=== PATIENT | female | born 1940 | race Caucasian/White ===

== ENCOUNTER → 2016-10-11 | Outpatient (CLI) | payer MEDICARE ==
[~2016-10-11] MED LIST: REGADENOSON 0.4 MG/5 ML DISP.SYRIN. IV ONE
--- NOTE | 2016-10-11 13:04 | RAD ---
APPROVED REPORT Test Type: Pharmacological Stress Nurse/Tech: Sruthi Marrufo R.N. Test Indications: Chest pain. Cardiac History: SEE EMR Medications: SEE EMR Medical History: SEE EMR Resting ECG: SR Resting Heart Rate: 69 bpm Resting Blood Pressure: 133/63mmHg Pretest Chest Pain: None Nurse/Tech Notes S1S2, lungs CTA, denied chest pain or SOA. Stress Symptoms Epigastric upset. POST EXERCISE Reason for Termination: Infusion complete Max HR: 102 bpm Max Blood Pressure: 141/78mmHg Blood Pressure response to exercise: Normal blood pressure response during stress. Heart Rate response to exercise: Normal Chest Pain: No. Arrhythmia: No. ST Change: No. INTERPRETATION Stress EKG Conclusion: No acute changes were noted. Rest: Stress: Viability: Radiopharm.Tc99m [id number] Sestamibi Mpaa30eEp 34mCi Duration 15min. 10min. Img Date 10/11/2016 10/11/2016 Inj-Img [id number]. 60min. Rest Admin Site:IV - Right AntecubitalAdministrator:Laith Raman RT (R)(N) Stress Admin Site: IV - Right AntecubitalAdministrator: Celestina Sosa RT (R)(N) STRESS DATA End Diast. Vol.36.0mlAv. Heart Rate81.0bpm End Syst. Vol.10.0mlCO Index BSA2.1L/min Myocardial Mass80.0gEject. Olymgkvo62.0% Stress Rates Pk. Fill Rate3.28EDV/secLVtime Pk. Fill 160.73msec Pk. Empty Rate5.27ESV/secLVtime Pk. Tzous616.93msec 03/22 Pk. Fill0.53EDV/sec Stress Scores Regional WT0.00Summed WT0.00 Regional WM0.00Summed WM7.00 LV Perf. Quant 17 Seg. SSS0.00 17 Seg. SRS0.00 17 Seg. SDS0.00 Stress Defect Extent (% LAD)0.00Rest Defect Extent (% LAD)0.00Rev. Defect Extent (% LAD)0.00 Stress Defect Extent (% LCX) 0.00Rest Defect Extent (% LCX)0.00Rev. Defect Extent (% LCX)0.00 Stress Defect Extent (% RCA)0.00Rest Defect Extent (% RCA)0.00Rev. Defect Extent (% RCA)0.00 Stress Defect Extent (% ROSALBA)0.00Rest Defect Extent (% ROSALBA)0.00Rev. Defect Extent (% ROSALBA)0.00 Conclusion 1. No electrocardiographic changes suggestive of myocardial ischemiq withpharmacological stress. 2. No perfusion defects tosuggest myocardial ischemia or scar. 3. Normal wall motion and wall thickening with an ejection fraction of 72%. 4. Scan indicates low risk for future cardiac events.
== END | disposition home or self-care (01) ==
LOC: NM 07:53
PROVIDERS: ATTEND Specialist
DX: R07.9 Chest pain, unspecified (principal)
CPT/HCPCS: 78452; 93017; 96374; 96375; 96376; A9500; J2785